=== PATIENT | male | born 1940 | race Two or more races ===

== ENCOUNTER 2019-02-02 11:47 | Emergency (ER) | payer MEDICARE, BC ==
[~2019-02-02] VITALS: Ht 185.4 cm; Wt 91.2 kg
--- NOTE | 2019-02-02 11:50 | NUR ---
Patient BIBA, a/ox1, verbally responsive but confused, no facial asymmetry noted, patient placed on the monitor, iv line established on right ac g18, blood drawn. md came and evaluated patient.
--- NOTE | 2019-02-02 11:53 | NUR ---
code stroke activated. ekg completed.
--- NOTE | 2019-02-02 11:56 | NUR ---
Patient taken to ct via acls protocol. SHANE. SVETLANA.
[2019-02-02] MEDS ORDERED: IV NS 0.9% 500 ML BAG IV ONE (12:00)
[2019-02-02 12:02] LABS: BASOPHILS % (AUTO) 0.5 % (0.0-2.0); EOSINOPHILS % (AUTO) 4.4 % (0.0-6.0); HEMATOCRIT 45 % (39-51); HEMOGLOBIN 15.1 g/dL (13.5-17.5); LYMPHOCYTES % (AUTO) 19.5 % (20.0-44.0); MEAN CORPUSCULAR HGB CONC 34 g/dl (31.0-36.0); MEAN CORPUSCULAR VOLUME 94 fL (80-96); MONOCYTES # (AUTO) 0.4 /CMM (0.1-1.30); MONOCYTES % (AUTO) 7.8 % (2.0-12.0); NEUTROPHILS # (AUTO) 3.5 /CMM (1.8-8.9); NEUTROPHILS % (AUTO) 67.8 % (43.0-81.0); PLATELET COUNT (AUTO) 126 /CMM (150-450); RED BLOOD CELL COUNT(AUTO) 4.82 MIL/uL (4.5-6.0); WHITE BLOOD COUNT (AUTO) 5.1 K/uL (4.3-11.0)
--- NOTE | 2019-02-02 12:03 | NUR ---
Patient came back from CT. SHANE MOTA.
--- NOTE | 2019-02-02 12:05 | NUR ---
Neuro contacted and activated, connected with Dr. Alatorre, spoke with patient and family. Dr. Alatorre spoke with Dr. Braga. Addendum: 02/02/19 at 1349 by ANGELOANCES Addendum: Patient noted to have expressive aphasia, clear speech.
[2019-02-02 12:08] LABS: CALCIUM, SERUM 8.8 mg/dL (8.5-10.1); CARBON DIOXIDE 27 mmol/L (21-32); CHLORIDE 104 mmol/L (98-107); GLUCOSE 169 mg/dL (74-106); POTASSIUM 4.9 mmol/L (3.5-5.1); SODIUM SERUM 140 mmol/L (136-145); UREA NITROGEN, BLOOD 17 mg/dL (7-18)
--- NOTE | 2019-02-02 12:09 | NUR ---
CALLED COMPUTATIONAL LINGUIST, DR DU IS PRODUCT ASSURANCE ENGINEER, HE SPOKE WITH DR HARP
[2019-02-02 12:13] LABS: ALANINE AMINOTRANSFERASE 31 U/L (12-78); ALBUMIN 3.9 g/dL (3.4-5.0); ALKALINE PHOSPHATASE 100 U/L (46-116); ASPARTATE AMINOTRANSFERASE 20 U/L (15-37); BILIRUBIN,DIRECT 0.1 mg/dL (0.0-0.2); BILIRUBIN,TOTAL 0.5 mg/dL (0.2-1.0); TOTAL PROTEIN, SERUM 7.5 g/dL (6.4-8.2)
[2019-02-02 12:20] LABS: CHOLESTEROL 99 mg/dL (<200); HDL CHOLESTEROL 52 mg/dL (40-60); LDL 42 mg/dL (0-99); TRIGLYCERIDES 95 mg/dL (30-150)
[2019-02-02] MEDS ORDERED: NICARDIPINE IN DEXTROSE,ISO-OS 200 ML IV ONE (12:24)
--- NOTE | 2019-02-02 12:28 | NUR ---
[facility] CALLED,SPOKE WITH WESLEY LA,WANTS CT RESULT AND FACESHEET FAXED,CCT STANDING BY
[2019-02-02] MEDS ORDERED: ALTEPLASE 100 MG/VIAL VIAL IV ONE ×3 (12:30→13:00)
[2019-02-02] MEDS ORDERED: NICARDIPINE IN NACL, ISO-OSM 200 ML IV PRN (12:30)
--- NOTE | 2019-02-02 12:30 | NUR ---
Unable to start TPA at this time, family wanted to discuss risks and benefits with Dr. Braga. Also, family refused to have TPA started until medication was verified with [facility] because family is unsure that patient is taking an anticoagulant, because the current medication list they have is outdated. Explained risks of delaying medication, and verbalized understanding.
--- NOTE | 2019-02-02 12:42 | NUR ---
Activase medication administered. Patient's VSS.
--- NOTE | 2019-02-02 12:49 | NUR ---
FAXED FACE SHEET, LABS, AND IMAGING REPORTS TO [phone]. SPOKE WITH WESLEY, FAX RECEIVED, AND HE STATED THAT THEY WOULD BE LEAVING WITH IN 2-5 MINS.
[2019-02-02] MEDS ORDERED: ALTEPLASE 100 MG in WATER FOR INJECTION,STERILE 100 ML IV ONE (13:00)
[2019-02-02] MEDS ORDERED: IV NS 0.9% 250 ML IV ONE (13:04)
[2019-02-02] MEDS ORDERED: IOHEXOL-350 100 ML VIAL IV ONE (13:04)
[2019-02-02] MEDS ORDERED: CT SWABBABLE VALVE TRANS SET 1 EA INFUS.SET MC ONE (13:04)
[2019-02-02 13:19] VITALS: BP 144/72
--- NOTE | 2019-02-02 13:30 | NUR ---
Report given to CCT Murta[place]. Activase 81.8ml/hr and Nicardipine at 7.5mg/hr infusing at this time. VSS. Report given to ICU NICKOLAS LA. Patient left in stable condition, a/ox3, no sob noted, accompanied by family.
== END 2019-02-02 14:34 | disposition short-term general hospital (02) ==
LOC: ER 11:49
DX: I63.89 Other cerebral infarction (principal); I10 Essential (primary) hypertension; I16.1 Hypertensive emergency; E78.00 Pure hypercholesterolemia, unspecified
CPT/HCPCS: 36415; 70450; 71045; 80048; 80061; 80076; 82962; 84484; 85025; 85730; 93005; 96374; 99291; A4216; J2997; J7040; J7050; Q9967